=== PATIENT | female | born 1970 | race Caucasian/White ===

== ENCOUNTER 2017-09-26 14:06 | Outpatient (CLI) | payer OTHER | END 2017-09-26 14:07 | disposition home or self-care (01) | LOC: BICMAMMO 14:06 | PROVIDERS: ATTEND Obstetrics & Gynecology | DX: Z80.3 Family history of malignant neoplasm of breast; Z12.31 Encounter for screening mammogram for malignant neoplasm of breast | CPT/HCPCS: 77063; 77067 ==

== ENCOUNTER 2018-06-18 08:07 | Outpatient (CLI) | payer OTHER | END 2018-06-18 08:08 | disposition home or self-care (01) | LOC: BICMAMMO 08:07 | PROVIDERS: ATTEND Specialist | DX: C50.919 Malignant neoplasm of unspecified site of unspecified female breast (principal); Z80.3 Family history of malignant neoplasm of breast | CPT/HCPCS: 77066; G0279 ==

== ENCOUNTER 2018-06-19 12:55 | Outpatient (CLI) | payer OTHER ==
--- NOTE | 2018-06-25 08:28 | MRI ---
MRI BREAST BILATERAL WITH AND WITHOUT CONTRAST: Date: 06/19/18 HISTORY: C50.911 lobular carcinoma of right breast. COMPARISON: Multiple prior examinations, most recently a mammogram of 06/18/18. TECHNIQUE: Multiplanar, multisequence MRI of both breasts performed prior to and after the intravenous administr ation of contrast. 3D rendering was provided. The exam was reviewed at an independent 3D workstation. FINDINGS: The breasts are heterogeneously dense. There is moderate background parenchymal enhancement. Corresponding to the area of biopsy is a somewhat dominant mass measuring 2.5 x 1.8 cm in the upper o uter right breast. There is extensive non mass-like enhancement throughout the outer one-half of the right breast both above and below the level of the nipple involving the upper outer and lower outer q uadrants. In total, this focal area of udt-incf-wdne enhancement measures 5.3 cm in transverse x 10.0 cm in AP dimension x 7.0 cm in craniocaudad dimension. Enhancement does extend to the level of the n ipple areola complex. There appears to be retraction of the right breast, outer one-half, relative to the left breast. The right breast is smaller than the left, which is probably sequelae of retraction from the underlying l obular carcinoma. Within the left breast, central to the nipple, middle depth, is a 0.9 x 1.6 cm lobular mass. This mas s demonstrates Type III kinetics with rapid wash-in and wash-out, concerning for underlying malignanc y. This type of wash-in and wash-out kinetics near that of the right breast mass malignancy. Large right axillary lymph nodes. No left axillary lymph nodes. No internal mammary adenopathy. Liver is unremarkable. On the T1-weighted sequence, no focal abnormal area of loss of marrow signal of the sternum. IMPRESSION: 1. BI-RADS Category 6 right breast. Known biopsy-proven malignancy. There is a dominant mass as desc ribed in the right breast, upper outer quadrant, with extensive non mass-like enhancement throughout the outer one-half of the breast, with measurements as above, with retraction of the skin lateral to the nipple, concerning for multifocal disease. 2. Single mass in the left breast measuring 0.9 x 1.6 cm central to the nipple, middle depth. This i s concerning for underlying malignancy in the contralateral breast. A second look ultrasound is recom mended to evaluate this specific area. If this is not seen on second look ultrasound, a MRI-guided bi opsy could be performed. CODE: ALPHONSO Glass POS: [facility]
== END 2018-06-19 12:56 | disposition home or self-care (01) ==
LOC: BICMRI 12:55
PROVIDERS: ATTEND Specialist
DX: C50.911 Malignant neoplasm of unspecified site of right female breast (principal); N63.11 Unspecified lump in the right breast, upper outer quadrant; N63.20 Unspecified lump in the left breast, unspecified quadrant
CPT/HCPCS: C8908

== ENCOUNTER 2018-07-02 12:03 | Outpatient (CLI) | payer OTHER ==
--- NOTE | 2018-07-02 16:07 | PET ---
PET CT FROM SKULL BASE THROUGH MID THIGH: INDICATION: History of bilateral breast cancer. TECHNIQUE: PET CT images were obtained from the skull base through mid thigh following administration of 11.2 mC i [id number] IV. CT images were obtained for attenuation correction purposes only. FINDINGS: The biodistribution for the examination appears acceptable. Head/Neck: There are mild shotty appearing lymph nodes seen within the right posterior cervical chain with mild increased metabolic activity with a peak SUV uptake of 1.34, and is best seen on image 44 of the axia l CT series. There is some hypermetabolic activity involving the palatine tonsils bilaterally, as wel l as the lingual tonsil, with a peak SUV uptake involving the right palatine tonsil of 4.58. This is nonspecific. Thorax: There are numerous mildly prominent lymph nodes within the right subclavicular region, as well as the right axillary region, suspicious for malignant lymphadenopathy. One of the largest measures 1.35 wi th peak SUV activity of 2.43. The additional lymph nodes demonstrate mild increased metabolic uptake, but many are subcentimeter in size. There are additional shotty appearing, mildly active lymph nodes seen adjacent to the right lower aspect of the thyroid gland. No hypermetabolic mediastinal, hilar, or left axillary lymph nodes are evident. No hypermetabolic pulmonary nodule or pleural effusion is e vident. Abdomen/Pelvis: No hypermetabolic mass or lymphadenopathy is seen. Skin/Osseous Structures: No hypermetabolic skin or osseous lesion identified. IMPRESSION: Abnormal PET CT: 1. There are numerous shotty appearing lymph nodes seen within the base of the neck, as well as with in the right subclavicular region and right axillary region suspicious for malignant lymphadenopathy. Many of these nodes are subcentimeter in size and likely below PET resolution threshold. The largest within the right axillary region measures 1.4 cm with a peak activity of 2.43. There are shotty appe aring lymph nodes with mild increased metabolic activity are located in the right posterior cervical chain, adjacent to the right aspect of the thyroid gland, right subclavicular region, and right axill catarina region. 2. Hypermetabolic activity involving the palatine and lingual tonsils may be inflammatory in nature related to an upper respiratory tract infection. Recommend correlation with clinical examination. Dir ect visualization is recommended as a malignancy within this location cannot be entirely excluded bas ed on the current findings. 3. No evidence of metastatic disease involving the abdomen and pelvis, skin, or osseous structures. POS: [facility]
== END 2018-07-02 12:04 | disposition home or self-care (01) ==
LOC: PET 12:03
PROVIDERS: ATTEND Internal Medicine Hematology & Oncology
DX: C50.911 Malignant neoplasm of unspecified site of right female breast (principal); C50.912 Malignant neoplasm of unspecified site of left female breast
CPT/HCPCS: 78815; A9552

== ENCOUNTER 2018-07-09 07:38 | Day surgery (SDC) | payer OTHER ==
[2018-07-08 13:52] VITALS: BMI 26.2
[2018-07-09] MEDS ORDERED: Bupivacaine/Epinephrine 0.25% 30 ML VIAL ONE (08:08)
[2018-07-09] MEDS ORDERED: Lidocaine 1% (PF) 30 ML VIAL ONE (08:08)
[2018-07-09] MEDS ORDERED: Ketorolac Tromethamine 30 MG/ML VIAL ONE (08:18)
[2018-07-09] MEDS ORDERED: CEFAZOLIN 2 GM/50 ML BAG ONE (08:18)
[2018-07-09 08:22] LABS: #Eosinphils 0.1 thou/uL (0.0-0.7); #Lymphocytes 2.5 thou/uL (1.20-3.40); #Monocytes 0.5 thou/uL (0.11-0.59); #Neutrophils 3.3 thou/uL (1.40-6.50); %Basophils 0.2 % (0.0-1.0); %Eosinophils 1.4 % (0.0-10.0); %Neutrophils 51.4 % (42.0-75.0); Hemoglobin 15.4 g/dL (12.0-16.0); Mean Corpuscular HGB CONC 34.8 g/dL (32.0-36.0); Mean Corpuscular Hemoglobin 31.8 pg (27.0-31.0); Mean Corpuscular Volume 91.5 fL (78.0-98.0); Mean Platelet Volume 6.4 fL (7.4-10.4); Platelet Count 333 thou/uL (130-400); RBC Distribution Width 11.2 % (11.5-14.5); Red Blood Cell (RBC) Count 4.83 mill/uL (4.20-5.40); White Blood Cell (WBC) Count 6.4 thou/uL (4.8-10.8)
[2018-07-09 08:34] LABS: BHCG - Serum Negative (NEGATIVE); Pregs Control Background? CLEAR/WHITE (CLR/WHITE); Pregs Control Bar Appear? YES (CONTROL BAR)
[2018-07-09 08:45] LABS: Anion Gap 14 mmol/L (10-20); BUN (Urea Nitrogen) 11 mg/dL (7.0-18.7); Calc. Creatinine Clearance 106 mL/min (70-130); Calcium 9.3 mg/dL (7.8-10.44); Carbon Dioxide 20 mmol/L (22-29); Chloride 107 mmol/L (98-107); Estimated GFR-MDRD Greater than 90; Glucose 95 mg/dL (70-105); Potassium 4.3 mmol/L (3.5-5.1); Sodium 137 mmol/L (136-145)
[2018-07-09] MEDS ORDERED: Midazolam HCl 2 mg/2 ml Vial ONE (10:26)
[2018-07-09] MEDS ORDERED: Fentanyl 100 MCG/2 ML VIAL ONE (10:26)
[2018-07-09] MEDS ORDERED: PROPOFOL 20 ML ONE (10:28)
[2018-07-09] MEDS ORDERED: PROPOFOL 200 MG/20 ML VIAL ONE (13:05)
[2018-07-09] MEDS ORDERED: Lidocaine 1% PF 5 ML VIAL ONE (13:05)
--- NOTE | 2018-07-09 13:42 | RAD ---
CHEST 1 VIEW: Date: 07/09/18 HISTORY: Postoperative MediPort filter evaluation. FINDINGS: The left subclavian catheter and MediPort filter are in place. No evidence for pneumothorax or pleura l effusion. Heart size is normal. IMPRESSION: Left MediPort catheter placement without pneumothorax or other acute process. POS: [facility]
--- NOTE | 2018-07-10 12:12 | OP ---
DATE OF PROCEDURE: 07/09/2018 PREOPERATIVE DIAGNOSIS: Bilateral breast cancer. POSTOPERATIVE DIAGNOSIS: Bilateral breast cancer. PROCEDURE PERFORMED: Placement of left subclavian power compatible standard size MediPort. ANESTHESIA: General with local using 0.25% Marcaine with epinephrine. INDICATIONS: The patient is a 48-year-old white female, who was recently diagnosed with bilateral breast cancer. Neoadjuvant chemotherapy has been recommended and she presents for MediPort placement for this purpose. DESCRIPTION OF PROCEDURE: Informed consent was obtained. The patient was taken to the operating room where total intravenous anesthesia was obtained with the patient in supine position. Left periclavicular area was prepped with ChloraPrep and draped in sterile fashion. Local anesthetic was infiltrated and a large-gauge needle was passed under the clavicle in the subclavian vein. Guidewire was passed through the needle and fluoroscopically confirmed to enter the superior vena cava. Additional local anesthetic was infiltrated and transverse incision was created based on needle insertion site. A subcutaneous pocket was dissected inferiorly. Introducer dilator was passed over the guidewire under fluoroscopic guidance. The guidewire and dilator were removed, and the catheter was passed through the introducer. The tip of the catheter was positioned at the atriocaval junction and the catheter was trimmed to the appropriate length and secured to the locking hub of the MediPort. The port was then placed in the subcutaneous pocket where it was secured to the pectoral fascia with 2 interrupted sutures of 3-0 Prolene. The incision was then closed in layers with 3-0 and 4-0 Monocryl. Additional local anesthetic was infiltrated. The port was cannulated with a Conner needle and it aspirated blood freely and was flushed with heparinized saline. Dermabond was placed externally on the skin incision. There were no complications. Blood loss was negligible. The patient tolerated the procedure well and was taken to recovery room in stable condition. FINDINGS: The port was placed in the left subclavian vein uneventfully. She had typical anatomy internally and externally. A standard size port was selected. There were no complications and no blood loss. Job ID: [id number]
== END 2018-07-09 12:35 | disposition home or self-care (01) ==
LOC: SDC 07:38
PROVIDERS: ATTEND Specialist
PROC: 05H633Z Insertion of Infusion Device into Left Subclavian Vein, Percutaneous Approach (ICD-10-PCS; principal; 2018-07-09)
DX: C50.912 Malignant neoplasm of unspecified site of left female breast (principal); C50.911 Malignant neoplasm of unspecified site of right female breast; Z87.891 Personal history of nicotine dependence
CPT/HCPCS: 36415; 71045; 80048; 84703; 85025; C1788; J0131; J1642; J1885; J2001; J2250; J2704; J3010

== ENCOUNTER 2018-07-20 07:25 | Outpatient (CLI) | payer OTHER ==
--- NOTE | 2018-07-20 10:24 | CT ---
CT NECK WITH CONTRAST: Date: 07-20-18 History: 48-year-old female with breast cancer. Equivocal cervical lymph nodes found on attenuation correction CT for PET scan of 07-02-18. A dedicated CT of the neck was ordered for more definitive evaluation. FINDINGS: There is a left subclavian implantable vascular access port. There are multiple non-necrotic, homogen eously enhancing mildly enlarged lymph nodes in the following locations: Cluster of multiple in right lateral subclavicular region. Of these, the largest is approximately 2 x 1 x 1 cm, abutting anterolateral upper chest wall (Image 84 of 89 series, 2; 33 of 105 series 300; 9 of 92 series 301). There is another cluster of mildly enlarged lymph nodes, slightly smaller than 1 cm, but numerous in number is a small area, medial to the right scalene muscles and posterior to the right internal jugul ar vein, and posterolateral to the right lobe of the thyroid gland at the T1 level (axial image 64 of 89 series 2). Another cluster in right lower level 5 laterally. The largest of this cluster is approximately 1.2 x 0.6 x 0.7 cm (53 of 89 series 2; 55 of 105 series 300). Right palatine tonsil is asymmetrically thicker than the left, and has slightly higher enhancement. I t contains a tiny 0.5 cm focal low attenuation central component. Nonspecific 1.5 x 0.7 x 1.3 cm left level II lymph node (26 of 89 series 2; 59 of 105 series 300). Additional scattered shotty cervical lymph nodes. Lingual tonsil is enlarged, asymmetrically larger on the right than left. The adenoids are not signif icantly enlarged. The parapharyngeal, submandibular, parotid, carotid, jack frame tender, sublingual, retrop haryngeal and posterior cervical spaces are unremarkable, expect for the lymph nodes described above. ACDF hardware at C4-5-6. The aryepiglottic folds and false vocal cords are diffusely mildly thickene d. IMPRESSION: 1. Nonspecific findings of mildly enlarged, but abnormally clustered, cervical lymph nodes including right subclavicular and right supraclavicular locations. These are indeterminate. 2. Asymmetrical thickening of the right palatine tonsil and right side of the lingual tonsil. Recomme nd direct visualization. 3. Status post anterior cervical discectomy and fusion at C4-5-6. POS: [facility]
[2018-07-20] MEDS ORDERED: Iopamidol 370 76% 100 ML VIAL ONE (12:45)
== END 2018-07-20 07:26 | disposition home or self-care (01) ==
LOC: CT 07:25
PROVIDERS: ATTEND Otolaryngology Otolaryngic Allergy
DX: C50.919 Malignant neoplasm of unspecified site of unspecified female breast (principal); R22.1 Localized swelling, mass and lump, neck; J35.8 Other chronic diseases of tonsils and adenoids
CPT/HCPCS: 70491; Q9967

== ENCOUNTER 2018-11-06 07:33 | Outpatient (CLI) | payer OTHER ==
--- NOTE | 2018-11-06 10:21 | PET ---
EXAM: PET/CT HISTORY: Bilateral breast cancer. Status post last chemotherapy on 11/05/2018. Exam requested for restaging. Ma lignant neoplasm upper outer quadrant of the right female breast, malignant neoplasm of (negative quadrant of the left female breast. TECHNIQUE: PET scanning with CT attenuation correction was performed from the base of the brain to the proximal thighs following the intravenous administration of 12 millicuries [id number]. COMPARISON: 07/02/2018 CORRELATION: None FINDINGS: No teofilo hypermetabolism is seen in the neck, axillae, chest, abdomen or pelvis. No hypermetabolic pulmonary nodules, liver, adrenal or skeletal lesions are seen. There is physiologic activity in the GI and tracts and the visualized portions of the brain. The CT scan used for attenuation correction demonstrates no evidence of pleural effusions or ascites. IMPRESSION: No evidence of metastatic disease.
== END 2018-11-06 07:34 | disposition home or self-care (01) ==
LOC: PET 07:33
PROVIDERS: ATTEND Internal Medicine Hematology & Oncology
DX: C50.411 Malignant neoplasm of upper-outer quadrant of right female breast (principal); C50.212 Malignant neoplasm of upper-inner quadrant of left female breast
CPT/HCPCS: 78815; A9552

== ENCOUNTER 2019-05-03 08:10 | Day surgery (SDC) | payer OTHER ==
[2019-04-30 11:35] VITALS: BMI 27.8
[2019-04-30 12:12] LABS: Hemoglobin 13.6 g/dL (12.0-16.0); Mean Corpuscular HGB CONC 34.5 g/dL (32.0-36.0); Mean Corpuscular Hemoglobin 32.2 pg (27.0-31.0); Mean Corpuscular Volume 93.1 fL (78.0-98.0); Mean Platelet Volume 6.2 fL (7.4-10.4); Platelet Count 225 thou/uL (130-400); RBC Distribution Width 13.7 % (11.5-14.5); Red Blood Cell (RBC) Count 4.23 mill/uL (4.20-5.40); White Blood Cell (WBC) Count 4.7 thou/uL (4.8-10.8)
[2019-05-03] MEDS ORDERED: Gabapentin 300 MG CAP ONE (08:43)
[2019-05-03] MEDS ORDERED: Famotidine/PF 20 mg/2ml Vial ONE (08:44)
[2019-05-03] MEDS ORDERED: CeleCOXIB 100 MG CAP ONE (08:45)
[2019-05-03] MEDS ORDERED: Glycopyrrolate 0.2 MG/ML 5 ML SYRINGE ONE (10:22)
[2019-05-03] MEDS ORDERED: Rocuronium Bromide 10 MG/ML (10ML VIAL) ONE (10:22)
[2019-05-03] MEDS ORDERED: PROPOFOL 200 MG/20 ML VIAL ONE (10:22)
[2019-05-03] MEDS ORDERED: Lidocaine 1% PF 5 ML VIAL ONE (10:22)
[2019-05-03] MEDS ORDERED: Dexamethasone 20 MG/5 ML VIAL ONE (10:22)
[2019-05-03] MEDS ORDERED: Ondansetron PF 4 MG/2 ML Vial ONE (10:22)
[2019-05-03] MEDS ORDERED: Metoclopramide HCl 10 MG/2 ML VIAL ONE (10:22)
[2019-05-03] MEDS ORDERED: Bupivacaine HCl 0.5%/Epinephrine 1:200,000/PF 30 ml Vial ONE (10:27)
[2019-05-03] MEDS ORDERED: Fentanyl 250 MCG/5 ML VIAL ONE (10:28)
[2019-05-03] MEDS ORDERED: Ropivacaine HCl/PF 750 ML in Premix Bag 1 BAG NERVE BLCK SCH (12:00)
[2019-05-03] MEDS ORDERED: Morphine 4 MG/ML VIAL SLOW IVP PRN (12:25)
[2019-05-03] MEDS ORDERED: HYDROcodone/Acetaminophen 5/325 mg Tablet PO PRN ×2 (12:25)
[2019-05-03] MEDS ORDERED: diphenhydrAMINE 25 MG CAP PO PRN (12:25)
[2019-05-03] MEDS ORDERED: Simethicone Chewable 80 MG TAB PO PRN (12:25)
[2019-05-03] MEDS ORDERED: Promethazine HCl 25 MG/ML VIAL IM PRN ×2 (12:25→13:19)
[2019-05-03] MEDS ORDERED: Ondansetron PF 4 MG/2 ML Vial IVP PRN (12:25)
[2019-05-03] MEDS ORDERED: Bisacodyl 10 MG SUPP PR PRN (12:25)
[2019-05-03] MEDS ORDERED: Sodium Chloride 0.9% 1,000 ML IV SCH (12:30)
[2019-05-03] MEDS ORDERED: Fentanyl 100 MCG/2 ML VIAL ONE (12:54)
[2019-05-03] MEDS ORDERED: Ondansetron HCl/PF 4 MG/2 ML Vial IVP PRN (13:19)
[2019-05-03] MEDS ORDERED: Promethazine HCl 25 MG/ML VIAL SLOW IVP PRN (13:19)
[2019-05-03] MEDS ORDERED: Ibuprofen 800 MG TAB PO SCH (14:00)
[2019-05-03 15:08] VITALS: TEMP 98.9
--- NOTE | 2019-05-03 15:32 | PDOC.EVN ---
Event Note - Event Note Event Note: POD0 Doing well, minimal discomfort, tolerating regular diet/snacks. GEN: NAD A and O, resting in bed Abd: nondistended Ext: SCDs on and working at LE Mood: appropriate A/P: POD0 doing well, will plan to remove Burch catheter soon and encourage ambulation. Possible DC later today vs. tomorrow AM.
[2019-05-03 17:12] VITALS: BP 122/59
[2019-05-03] MEDS ORDERED: Ketorolac Tromethamine 30 MG/ML VIAL IVP SCH (18:00)
--- NOTE | 2019-05-03 21:15 | OP ---
DATE OF PROCEDURE: 05/03/2019 PREOPERATIVE DIAGNOSIS: Personal history of breast cancer. PROCEDURES PERFORMED: 1. Robotic-assisted total laparoscopic hysterectomy with bilateral salpingectomy. 2. Placement of ON-Q pump. SHELLAC POLISHER: Meg Ackerman PA-C ANESTHESIA: MAGDA per Dr. Gutierrez. COMPLICATIONS: None. ESTIMATED BLOOD LOSS: 75 mL. FINDINGS: 1. Normal-appearing uterus, tubes, and ovaries bilaterally. 2. No intraabdominal adhesive disease. 3. Surgical sites hemostatic. 4. Normal liver edge. DESCRIPTION OF PROCEDURE: The patient was taken back to the OR with IV fluids running. When she was in the OR, she was placed in dorsal supine position until anesthesia was obtained. Once the patient was asleep, she was placed in low dorsal lithotomy position and the abdomen and vagina were prepped and draped in normal fashion for gynecologic laparoscopy. Surgeons were gowned and gloved and a time -out was performed. A Burch catheter was placed into the bladder and drained approximately 25 to 30 mL of urine. A Giancarlo syringe was attached to the Burch tip for bladder manipulation if needed during the case. An operative speculum was placed into the vagina and the anterior lip of the cervix was grasped with a single-tooth tenaculum. The cervix was serially dilated and sounded between 8 and 10 cm. The Re-Gianna manipulator was assembled with 3.5 cm cup and tip and placed into the uterus and vagina in routine fashion. The operative speculum and tenaculum were removed and the surgeon's gloves were changed and attention was turned to the laparoscopic portion of the procedure. Beginning at the supraumbilical fold, local anesthesia was placed underneath the skin. A 12 mm skin incision was made with a scalpel. A Veress needle was placed through this incision and the abdomen was insufflated without difficulty. The Veress needle was removed and a 12 mm trocar was placed through the skin incision through the distended abdomen. The obturator was removed and the laparoscope was placed through the trocar with the above findings noted. The patient was then placed in Trendelenburg position. Of note , the tip of the RE manipulator was noted to have penetrated the uterine wall during insertion. A small amount of bleeding was noted around this manipulator tip which was controlled with cauterization. Beginning on the patient's left side, the left fallopian tube and ovary were grasped and elevated away from the pelvic sidewall. Next, under direct visualization, the left and right lower quadrant 8 mm trocars and the right upper quadrant 11 mm trocar were placed without difficulty. With all 4 ports placed, the robot was docked at the patient's bedside and the instruments were placed under direct visualization into the operative field. At this point, a small amount of bleeding noted at the perforation site of the uterus was controlled with cauterization. Minimal blood loss occurred from this. Next, the left ovary and fallopian tube were grasped and elevated from the pelvic sidewall. The left IP ligament was identified, cauterized, and transected. The left ovary and tube specimen were dissected away from pelvic sidewall medially toward the uterus. The round ligament on the patient's left side was then cauterized, transected and divided into anterior and posterior leaf. The anterior and posterior leaves were dissected down towards the level of the uterine artery. The anterior leaf was dissected down towards the level of the cervix. The bladder was backfilled and the bladder reflection was easily identified and the bladder flap dissection was completed laterally to medially on the patient's left. The uterine artery was then further skeletonized and was then cauterized and transected. Next, attention was turned to the contralateral side. The utero-ovarian ligament and round ligament on the patient's right side were cauterized and transected. The round ligament on the patient's right side was cauterized, transected, and divided into anterior and posterior leaf. They were dissected down towards the level of the uterine artery. The bladder flap was then completed by dissecting the bladder reflection laterally from the right to medially where the dissection was completed. The bladder was then dissected away from the planned colpotomy site with monopolar cautery and fine dissection technique. The uterine artery on the patient's right side was further skeletonized. It was then cauterized and transected. The colpotomy was then completed by using monopolar cautery circumferentially. Bipolar cautery was used as needed for hemostasis or to transect larger juncture tissue. After the colpotomy was complete, the uterus, left ovary and left tube specimen were retracted into the vagina. Attention was then turned to removing the right tube and ovary. The right tube and ovary were grasped and elevated towards the midline. The IP ligament was identified on the patient 's right side. It was then cauterized and transected. The fallopian tube and ovary segment were then placed into the vagina and removed by the surgical scrub nurse. The colpotomy was copiously irrigated and dried. Any small areas of bleeding were controlled with bipolar cautery. The colpotomy was then reapproximated and closed with Stratafix suture in a running fashion in 2 layers. After the colpotomy closure was complete, the bladder flap, colpotomy and surgical pedicles were copiously irrigated and suctioned dry. The pressure was dropped to 6 mmHg and no areas of bleeding were noted. A thin layer of Ivana was applied between the bladder flap and the vaginal cuff. After this was placed, an ON-Q pump catheter tip was placed under direct visualization and placed into the pelvis. All instrument count and sponge count were correct. The trocars were removed from the abdomen and gas was released from the abdomen. The supraumbilical fascial incision was closed with Vicryl suture and all 4 skin incisions were closed with Monocryl suture and dressed with Dermabond dressing. The vagina was inspected at the end of the case with no bleeding noted. The patient tolerated the procedure well. Job ID: [id number] [facility]
== END 2019-05-03 18:55 | disposition home or self-care (01) ==
LOC: SDC 08:10 → 3SE 12:25 → SDC 18:55
PROVIDERS: ATTEND Obstetrics & Gynecology
PROC: 0UT74ZZ Resection of Bilateral Fallopian Tubes, Percutaneous Endoscopic Approach (ICD-10-PCS; principal; 2019-05-03)
PROC: 0UT24ZZ Resection of Bilateral Ovaries, Percutaneous Endoscopic Approach (ICD-10-PCS; principal; 2019-05-03)
PROC: 0UT94ZZ Resection of Uterus, Percutaneous Endoscopic Approach (ICD-10-PCS; principal; 2019-05-03)
DX: Z40.02 Encounter for prophylactic removal of ovary(s) (principal); Z40.03 Encounter for prophylactic removal of fallopian tube(s); Z40.09 Encounter for prophylactic removal of other organ; N83.201 Unspecified ovarian cyst, right side; N87.9 Dysplasia of cervix uteri, unspecified; N80.0 Endometriosis of uterus; D25.9 Leiomyoma of uterus, unspecified; I10 Essential (primary) hypertension; G89.18 Other acute postprocedural pain; Z87.891 Personal history of nicotine dependence; Z85.3 Personal history of malignant neoplasm of breast
CPT/HCPCS: 36415; 85027; 86850; 86900; 86901; 88307; J0670; J0690; J1100; J2001; J2405; J2704; J2765; J2795; J3010; S0028

== ENCOUNTER 2019-06-21 10:05 | Outpatient (CLI) | payer OTHER ==
--- NOTE | 2019-06-21 11:15 | CT ---
EXAM: CT of the chest with contrast CT of the abdomen and pelvis with contrast HISTORY: Malignant neoplasm of the upper outer quadrant of the right breast COMPARISON: PET/CT 11/06/2018 TECHNIQUE: 1. Multiple contiguous axial images were obtained in a CT the chest with contrast. Coronal and sagitt al reformats were performed. 2. Multiple contiguous axial images were obtained and a CT of the abdomen and pelvis with contrast. O ral contrast was administered. Coronal and sagittal reformats were performed. FINDINGS: CT CHEST: HEART: Normal in size without focal cardiac abnormality MEDIASTINUM: No hilar or mediastinal lymphadenopathy. LUNGS: Airspace opacity is seen in the right middle lobe which may represent sequelae from prior radi ation therapy. No suspicious pulmonary nodules are seen. PLEURAL SPACE: No pneumothorax or pleural effusion. CHEST WALL SOFT TISSUES: Patient has had interval bilateral mastectomies. Surgical clips are seen in the right axilla. CT ABDOMEN/PELVIS: ABDOMEN: LIVER: within normal limits. BILE DUCTS: Normal caliber. GALLBLADDER: No calcified gallstones. Normal caliber wall. PANCREAS: within normal limits. SPLEEN: within normal limits. ADRENALS: within normal limits. KIDNEYS: within normal limits. PELVIS: REPRODUCTIVE ORGANS: Status post hysterectomy. URETERS: within normal limits. BLADDER: within normal limits. PERITONEUM: No ascites or free air, no fluid collection. BOWEL: Normal caliber. MESENTERY AND RETROPERITONEUM: No enlarged mesenteric or retroperitoneal lymph nodes. VESSELS: Normal. ABDOMINAL WALL: within normal limits. OSSEOUS STRUCTURES: No suspicious osseous lesions identified. IMPRESSION: 1. No evidence of recurrent or metastatic disease. 2. Airspace opacity in the right middle lobe likely represents post radiation therapy change to the r ight lung.
== END 2019-06-21 10:06 | disposition home or self-care (01) ==
LOC: BICCT 10:05
PROVIDERS: ATTEND Internal Medicine Hematology & Oncology
DX: C50.411 Malignant neoplasm of upper-outer quadrant of right female breast (principal); C50.212 Malignant neoplasm of upper-inner quadrant of left female breast; R91.8 Other nonspecific abnormal finding of lung field
CPT/HCPCS: 71260; 74177

== ENCOUNTER 2019-10-19 15:06 | Outpatient (CLI) | payer OTHER ==
--- NOTE | 2019-10-19 15:55 | ULT ---
Exam: Right upper extremity venous ultrasound with Doppler HISTORY: Breast cancer. Right arm swelling and pain. COMPARISON: None TECHNIQUE: Grayscale, color flow, Doppler imaging and spectral waveform analysis of the right upper e xtremity venous system FINDINGS: Flow and compressibility of the internal jugular vein Flow in the subclavian vein Compressibility and flow in the axillary vein, cephalic vein, basilic vein and brachial vein. IMPRESSION: No evidence of thrombus in the visualized right upper extremity venous system
== END 2019-10-19 15:07 | disposition home or self-care (01) ==
LOC: BICULT 15:06
PROVIDERS: ATTEND Internal Medicine Hematology & Oncology
DX: M79.601 Pain in right arm (principal)

== ENCOUNTER 2019-11-05 15:17 | Outpatient (CLI) | payer OTHER ==
--- NOTE | 2019-11-05 15:53 | BD ---
DEXA BONE DENSITOMETRY: (Dual energy x-ray absorptiometry) DATE: 11/05/2019 HISTORY: 49-year old white female for age-related, post-menopausal, osteoporosis screening. Bilateral breast cancer. weight: 155 lbs height: 63 in. Age of menopause: 48 COMPARISON: None available. FINDINGS: The bone mineral density (BMD) is given in grams per square centimeter (g/cm2): LUMBAR SPINE: BMD (g/cm^2) T score Z score L1: 1.062 0.7 1.3 L2: 1.089 0.6 1.3 L3: 1.064 -0.2 0.6 L4: 1.022 -0.4 0.5 Total: 1.059 0.1 0.9 HIP: BMD (g/cm^2) T score Z score Femoral neck: 0.687 -1.5 -0.7 Total: 0.928 -0.1 0.4 FRAX WHO fracture risk assessment tool: 10 year fracture risk* Major osteoporotic fracture: 4.7 % Hip fracture: 0.3 % Reported risk factors: US (), neck BMD = 0.687 (g/cm^2), BMI = 27.5. *Fracture probability is calculated for an untreated patient. Fracture probability may be lower if th e patient has received treatment. IMPRESSION: 1.) The mean bone mineral density of the lumbar spine is normal. Fracture risk is not increased. 2) The bone mineral density of the femoral neck is osteopenic. Fracture risk is increased.
== END 2019-11-05 15:18 | disposition home or self-care (01) ==
LOC: BICMAMMO 15:17
PROVIDERS: ATTEND Internal Medicine Hematology & Oncology
DX: Z13.820 Encounter for screening for osteoporosis (principal); M85.859 Other specified disorders of bone density and structure, unspecified thigh; Z78.0 Asymptomatic menopausal state
CPT/HCPCS: 77080

== ENCOUNTER 2019-11-23 07:29 | Outpatient (CLI) | payer OTHER ==
[2019-11-23] MEDS ORDERED: Iopamidol 370 76% 100 ML VIAL ONE (08:48)
--- NOTE | 2019-11-23 10:07 | CT ---
CT OF CHEST AND ABDOMEN AND PELVIS PERFORMED WITH IV CONTRAST ENHANCEMENT: Date: 11/23/2019 HISTORY: Malignant neoplasm of upper outer quadrant of right breast. COMPARISON: 06/21/2019 exam. FINDINGS: CT CHEST: Right upper lobe parenchymal lung changes are again noted, most compatible with scarring related to p ost radiation change. There are no pulmonary nodules or pleural effusions identified. There is no significant mediastinal or hilar adenopathy. Postoperative changes of the right axilla ar e noted. Bilateral mastectomies have been performed. Surgical clips also seen in the left axilla. CT ABDOMEN PERFORMED WITH CONTRAST ENHANCEMENT: There are diffuse fatty changes of the liver. The spleen, pancreas, and gallbladder regions all appea r unremarkable. Right and left adrenal glands, and right and left kidneys are normal. There is no significant periaor tic or mesenteric lymphadenopathy. CT PELVIS PERFORMED WITH CONTRAST ENHANCEMENT: No evidence of adenopathy, mass, or free fluid. OSSEOUS STRUCTURES: No lytic or blastic bony changes. IMPRESSION: 1. Postop mastectomy changes. 2. Diffuse fatty changes of liver. 3. Postradiation change involving the right upper and right middle lobes. POS: [facility]
== END 2019-11-23 07:30 | disposition home or self-care (01) ==
LOC: BICCT 07:29
PROVIDERS: ATTEND Internal Medicine Hematology & Oncology
DX: C50.411 Malignant neoplasm of upper-outer quadrant of right female breast (principal); C50.212 Malignant neoplasm of upper-inner quadrant of left female breast; T38.6X5A Adverse effect of antigonadotrophins, antiestrogens, antiandrogens, not elsewhere classified, initial encounter; K76.0 Fatty (change of) liver, not elsewhere classified; Z98.890 Other specified postprocedural states
CPT/HCPCS: 71260; 74177; Q9967

== ENCOUNTER 2024-04-23 08:49 | Outpatient (CLI) | payer BC ==
[2024-04-23] MEDS ORDERED: Iopamidol 370 76% 100 ML VIAL ONE (14:16)
== END 2024-04-23 08:50 | disposition home or self-care (01) ==
LOC: CT 08:49
PROVIDERS: ATTEND Internal Medicine Hematology & Oncology
DX: C50.411 Malignant neoplasm of upper-outer quadrant of right female breast (principal); C50.212 Malignant neoplasm of upper-inner quadrant of left female breast
CPT/HCPCS: 71260; 74177; Q9967